=== PATIENT | male | born 1970 ===

== ENCOUNTER 2020-05-07 19:36 | Emergency (ER) | payer MEDICAID, OTHER ==
[~2020-05-07] VITALS: Ht 170.2 cm; Wt 66.0 kg
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
--- NOTE | 2020-05-07 20:15 | NUR ---
pt resting on gurney, nad, provided warm blankets for comfort, pt is more cooperative at this time. mtf, bed in lowest, rails engaged, call light on lap, wctm.
--- NOTE | 2020-05-07 21:22 | NUR ---
PT RESTING ON GURNEY, NAD, APPEARS COMFORTABLE, EYES CLOSED, EVEN AND UNLABORED RESPIRATIONS, BED IN LOWEST, RAILS ENGAGED, CALL LIGHT ON LAP, WCTM. MTF
--- NOTE | 2020-05-07 23:02 | NUR ---
pt resting on gurney, nad, vss, appears comfortable, eyes closed, even and unlabored respirations, wctm. mtf.
[2020-05-08 00:27] VITALS: BP 103/75
--- NOTE | 2020-05-08 00:28 | NUR ---
Patient given discharge instructions and they have confirmed that they understand the instructions. Patient ambulatory with steady gait. denies additional questions or needs, no personal belongings left in room after dc. Pt verbally aggressive towards RN stating "pearl been here longer than you have on this earth you ignorant bitch", "these fucking people, its all ridiculous". pt provided taxi voucher.
== END 2020-05-08 00:31 | disposition home or self-care (01) ==
LOC: ED 20:06
DX: F10.129 Alcohol abuse with intoxication, unspecified (principal); R41.82 Altered mental status, unspecified; Z72.9 Problem related to lifestyle, unspecified; Y90.0 Blood alcohol level of less than 20 mg/100 ml
CPT/HCPCS: 99283